=== PATIENT | male | born 1980 | race Caucasian/White ===

== ENCOUNTER 2023-08-16 00:49 | Emergency (ER) | payer OTHER ==
[2023-08-16] MEDS ORDERED: Aspirin 81 MG Tab.Chew PO ONE (01:12)
[2023-08-16] MEDS ORDERED: Sodium Chloride 0.9% 10 ML Syringe FLUSH PRN (01:15)
[2023-08-16 01:31] LABS: BASOPHILS ABSOLUTE AUTO 0.04 10^3/uL (0.00-0.10); BASOPHILS PERCENT AUTO 0.4 % (0.0-1.0); EOSINOPHILS ABSOLUTE AUTO 0.14 10^3/uL (0.10-0.30); EOSINOPHILS PERCENT AUTO 1.6 % (1.0-3.0); HEMATOCRIT 38.7 % (40.0-52.0); HEMOGLOBIN 13.8 g/dL (13.0-17.0); IMMATURE GRAN ABSOLUTE AUTO 0.01 10^3/uL (0.00-0.50); IMMATURE GRAN PERCENT AUTO 0.1 % (0.0-5.0); LYMPHOCYTES ABSOLUTE AUTO 3.45 10^3/uL (1.00-4.00); LYMPHOCYTES PERCENT AUTO 38.8 % (20.0-40.0); MEAN CORPUSCULAR HEMOGLOBIN 29.7 pg (27.0-31.0); MEAN CORPUSCULAR HGB CONC 35.7 g/dL (32.0-36.0); MEAN CORPUSCULAR VOLUME 83.2 fL (82.0-92.0); MEAN PLATELET VOLUME 9.2 fL (7.4-10.4); MONOCYTES ABSOLUTE AUTO 0.56 10^3/uL (0.10-0.80); MONOCYTES PERCENT AUTO 6.3 % (2.0-8.0); NEUTROPHILS ABSOLUTE AUTO 4.69 10^3/uL (2.50-7.00); NEUTROPHILS PERCENT AUTO 52.8 % (50.0-70.0); PLATELET COUNT,PLT 204 10^3/uL (150-400); RED BLOOD CELL COUNT 4.65 10^6/uL (4.50-6.00); RED CELL DISTRIBUTION WIDTH 14.1 % (11.5-14.5); WHITE BLOOD CELL COUNT,WBC 8.89 10^3/uL (5.00-10.00)
[2023-08-16 01:48] LABS: ANION GAP 13.2 mmol/L (5-15); CALCIUM 8.7 mg/dL (8.7-10.3); CARBON DIOXIDE,CO2 27.3 mmol/L (21.0-32.0); CREATININE 0.63 mg/dL (0.51-1.17); EST CRCL DRUG DOSING (CG) 157.72 mL/min; POTASSIUM,K 3.5 mmol/L (3.5-5.1)
== END 2023-08-16 03:17 | disposition home or self-care (01) ==
LOC: KA.ED 00:49
DX: R07.89 Other chest pain (principal); Z88.7 Allergy status to serum and vaccine; Z79.82 Long term (current) use of aspirin; Z79.899 Other long term (current) drug therapy
CPT/HCPCS: 71101-RT; 80048; 85025; 85379; 93005; 93010; 99284; 99285; A9270-GY; J3490